=== PATIENT | female | born 1970 | race Caucasian/White ===

== ENCOUNTER → 2023-04-08 10:29 | Outpatient (REF) | payer OTHER, SELFPAY | LOC: WDC 10:29 | PROVIDERS: ATTENDING PHYSICIAN Nurse Practitioner Obstetrics & Gynecology; FAMILY PHYSICIAN Physician Assistant Medical | DX: Z12.31 Encounter for screening mammogram for malignant neoplasm of breast (principal) | CPT/HCPCS: 77063; 77067 ==

== ENCOUNTER → 2024-04-14 10:48 | Outpatient (REF) | payer OTHER, SELFPAY | LOC: WDC 10:48 | PROVIDERS: ATTENDING PHYSICIAN Obstetrics & Gynecology; FAMILY PHYSICIAN Physician Assistant Medical; REFERRING PHYSICIAN Internal Medicine Rheumatology | DX: Z12.31 Encounter for screening mammogram for malignant neoplasm of breast (principal) | CPT/HCPCS: 77080 ==

== ENCOUNTER → 2024-05-03 14:00 | Outpatient (REF) | payer OTHER, SELFPAY | LOC: RAD 14:00 | PROVIDERS: ATTENDING PHYSICIAN Internal Medicine Rheumatology; FAMILY PHYSICIAN Physician Assistant Medical | DX: I73.9 Peripheral vascular disease, unspecified (principal); I87.2 Venous insufficiency (chronic) (peripheral) | CPT/HCPCS: 93922; 93925 ==

== ENCOUNTER → 2024-06-27 09:08 | Outpatient (REF) | payer OTHER, SELFPAY | LOC: EMG 09:08 | PROVIDERS: ATTENDING PHYSICIAN Internal Medicine Rheumatology; FAMILY PHYSICIAN Physician Assistant Medical | DX: R20.0 Anesthesia of skin (principal); G56.00 Carpal tunnel syndrome, unspecified upper limb | CPT/HCPCS: 95886; 95910 ==